=== PATIENT | female | born 1980 | race Caucasian/White ===

== ENCOUNTER 2020-02-11 18:02 | Emergency (ER) | payer BC ==
[~2020-02-11] VITALS: Ht 165.1 cm; Wt 63.5 kg
[2020-02-11 18:19] VITALS: Ht 165.1 cm; Wt 63.5 kg
[2020-02-11 20:24] VITALS: BP 148/71
== END 2020-02-11 20:24 | disposition home or self-care (01) ==
LOC: ED 18:02
DX: S61.216A Laceration without foreign body of right little finger without damage to nail, initial encounter (principal); F17.210 Nicotine dependence, cigarettes, uncomplicated; W26.0XXA Contact with knife, initial encounter; Y93.89 Activity, other specified; Y92.89 Other specified places as the place of occurrence of the external cause; Y99.8 Other external cause status
CPT/HCPCS: 90715; J2001